=== PATIENT | female | born 2000 | race Hispanic/Latino ===

== ENCOUNTER 2022-12-05 20:05 | Emergency (ER) | payer SELFPAY ==
[2022-12-05] MEDS ORDERED: Lidocaine 1% (PF) 30 ML VIAL ONE (21:17)
[2022-12-05] MEDS ORDERED: Bupivacaine PF 0.5% 30 ML VIAL ONE (21:18)
[2022-12-05] MEDS ORDERED: Bacitracin 1 PK ONE (21:38)
[2022-12-05] MEDS ORDERED: Silver Nitrate Application 1 EACH ONE (22:05)
== END 2022-12-05 22:50 | disposition home or self-care (01) ==
LOC: CSHERS 20:05
DX: L60.0 Ingrowing nail (principal)
CPT/HCPCS: 99283; J2001; S0020